=== PATIENT | male | born 1955 | race Caucasian/White ===

== ENCOUNTER 2017-08-31 08:23 | Outpatient (CLI) | payer BC ==
[2017-08-31 09:45] LABS: Hematocrit 42.3 % (42.0-52.0); Mean Platelet Volume 8.2 fL (7.4-10.4); Red Blood Cell (RBC) Count 4.76 mill/uL (4.70-6.10); White Blood Cell (WBC) Count 6.9 thou/uL (4.8-10.8)
[2017-08-31 10:00] LABS: ALT (SGPT) 25 U/L (8-55); AST (SGOT) 18 U/L (5-34); Alkaline Phosphatase 95 U/L (40-150); Anion Gap 11 mmol/L (10-20); BUN (Urea Nitrogen) 15 mg/dL (8.4-25.7); Bilirubin, Direct 0.3 mg/dL (0.1-0.3); Bilirubin, Total 0.8 mg/dL (0.2-1.2); Calc. Creatinine Clearance 0 mL/min (70-130); Calcium 10.4 mg/dL (7.8-10.44); Carbon Dioxide 25 mmol/L (22-29); Chloride 110 mmol/L (98-107); Estimated GFR-MDRD Greater than 90; Protein, Total 6.1 g/dL (6.0-8.3)
== END 2017-08-31 08:24 | disposition home or self-care (01) ==
LOC: LABBT 08:23
PROVIDERS: ATTEND Surgery
DX: Z01.812 Encounter for preprocedural laboratory examination (principal); K80.20 Calculus of gallbladder without cholecystitis without obstruction
CPT/HCPCS: 80048; 80076; 85027; 93005; 93010

== ENCOUNTER 2017-09-02 10:00 | Day surgery (SDC) | payer BC ==
[2017-08-31 08:42] VITALS: BMI 31.7
[2017-09-02] MEDS ORDERED: CEFAZOLIN/Water 2 GM/20 ML SYRINGE ONE (10:35)
[2017-09-02] MEDS ORDERED: Indocyanine Green 25 MG/10 ML VIAL ONE (10:35)
[2017-09-02] MEDS ORDERED: Bupivacaine/Epinephrine 0.25% 30 ML VIAL ONE (11:41)
[2017-09-02] MEDS ORDERED: Fentanyl 250 MCG/5 ML VIAL ONE (12:00)
[2017-09-02] MEDS ORDERED: SUGAMMADEX SODIUM 500 MG/5 ML VIAL ONE (13:31)
[2017-09-02] MEDS ORDERED: Ondansetron HCl/PF 4 MG/2 ML Vial ONE (14:47)
[2017-09-02] MEDS ORDERED: Glycopyrrolate 0.2 MG/ML 5 ML SYRINGE ONE (14:47)
[2017-09-02] MEDS ORDERED: Propofol 200 MG/20 ML VIAL ONE (14:47)
[2017-09-02] MEDS ORDERED: Calcium Chloride 1 GM/10 ML Abboject SYRINGE ONE (14:47)
[2017-09-02] MEDS ORDERED: ePHEDrine/0.9% NaCl/PF SYRINGE 50 mg/10 ml ONE (14:47)
[2017-09-02] MEDS ORDERED: Dexamethasone 20 MG/5 ML VIAL ONE (14:47)
[2017-09-02] MEDS ORDERED: PHENYLEPHRINE-NS 100 MCG/ML 10 ML SYRINGE ONE (14:47)
[2017-09-02] MEDS ORDERED: Lidocaine 1% PF 5 ML VIAL ONE (14:47)
[2017-09-02] MEDS ORDERED: HYDROcodone/Acetaminophen 5/325 mg Tablet ONE (15:00)
[2017-09-02] MEDS ORDERED: Promethazine HCl 25 MG/ML VIAL ONE (16:10)
--- NOTE | 2017-09-02 22:50 | OP ---
PREOPERATIVE DIAGNOSIS: Symptomatic gallstones. POSTOPERATIVE DIAGNOSIS: Symptomatic gallstones. PROCEDURE: Da Thomas laparoscopic cholecystectomy. SURGEON: Dr. Lamin Aceves. ANESTHESIA: General. ESTIMATED BLOOD LOSS: Minimal. COMPLICATIONS: None. SPECIMEN: Gallbladder. FINDINGS: Chronic cholecystitis. TECHNIQUE: The patient was taken to the operating room and placed supine on the table. After genera l anesthetic was obtained, the abdomen was prepped and draped in a sterile fashion. Curved incision made below the umbilicus. Cautery was used to dissect down to and score the fascia. Abdominal cavit y entered using a 12-mm Ethicon trocar, high-flow pneumoperitoneum was obtained. Left and right abdo andrew 8 mm robot trocars and a 5-mm assist port was placed. All ports were docked to the robot. The patient had been placed in reverse Trendelenburg position. The peritoneum of the gallbladder was op ened anteriorly and posteriorly. The critical view triangle was seen showing only the cystic duct an d cystic artery branching medial to lateral. There were no other branching structures. The anatomy was confirmed using fluorescence as ICG green dye had been given intravenously preop. Two clip s were placed proximally and one distally and the cystic duct was cut using laparoscopic scissors. C ystic artery was taken in the same way. Cautery was then used to dissect the gallbladder out of the gallbladder fossa. The gallbladder was placed in an Endo catch bag and at the end of the procedure w as brought out through the 12-mm trocar site. There was no bleeding in the liver bed. The right upp er quadrant was irrigated using sterile solution until returns are clear. All port sites are worse u sing local anesthetic. All ports were undocked from the robot. The patient did had an umbilical her lyudmila at the umbilicus. This was closed in a primary fashion using interrupted PDS suture. All other port sites were removed and all skin incisions closed using 4-0 Monocryl and Dermabond. The patient was en route to recovery in stable condition. All instrument counts, needle counts, and lap counts w ere correct.
== END 2017-09-02 17:30 | disposition home or self-care (01) ==
LOC: SDC 10:00
PROVIDERS: ATTEND Surgery
PROC: 0FT44ZZ Resection of Gallbladder, Percutaneous Endoscopic Approach (ICD-10-PCS; principal; 2017-09-02)
DX: K80.10 Calculus of gallbladder with chronic cholecystitis without obstruction (principal); Z95.5 Presence of coronary angioplasty implant and graft; Z98.890 Other specified postprocedural states
CPT/HCPCS: 88304; 96374; J1100; J2001; J2405; J2550; J2704; J3010

== ENCOUNTER 2018-05-13 13:35 | Inpatient (IN) | payer BC ==
[2018-05-13 14:04] LABS: #Eosinphils 0.2 thou/uL (0.0-0.7); #Lymphocytes 1.7 thou/uL (1.20-3.40); #Monocytes 0.6 thou/uL (0.11-0.59); #Neutrophils 4.4 thou/uL (1.40-6.50); %Basophils 0.4 % (0.0-1.0); %Eosinophils 2.2 % (0.0-10.0); %Lymphocytes 24.9 % (21.0-51.0); %Monocytes 8.7 % (0.0-10.0); %Neutrophils 63.8 % (42.0-75.0); Hemoglobin 15.1 g/dL (14.0-18.0); Mean Corpuscular HGB CONC 34.9 g/dL (32.0-36.0); Mean Corpuscular Hemoglobin 30.8 pg (27.0-31.0); Mean Corpuscular Volume 88.1 fL (78.0-98.0); Mean Platelet Volume 7.7 fL (7.4-10.4); Platelet Count 185 thou/uL (130-400); RBC Distribution Width 12.5 % (11.5-14.5); White Blood Cell (WBC) Count 6.9 thou/uL (4.8-10.8)
[2018-05-13 14:24] LABS: ALT (SGPT) 31 U/L (8-55); AST (SGOT) 23 U/L (5-34); Albumin 4.5 g/dL (3.5-5.0); Alkaline Phosphatase 97 U/L (40-150); Anion Gap 9 mmol/L (10-20); BUN (Urea Nitrogen) 16 mg/dL (8.4-25.7); Bilirubin, Total 1.3 mg/dL (0.2-1.2); CK (CPK) 88 U/L (30-200); Calc. Creatinine Clearance 0 mL/min (70-130); Calcium 10.9 mg/dL (7.8-10.44); Carbon Dioxide 24 mmol/L (22-29); Chloride 109 mmol/L (98-107); Estimated GFR-MDRD Greater than 90; Globulin 2.2 g/dL (2.4-3.5); Glucose 118 mg/dL (70-105); Lipase 35 U/L (8-78); Potassium 4.2 mmol/L (3.5-5.1); Protein, Total 6.7 g/dL (6.0-8.3); Sodium 138 mmol/L (136-145)
[2018-05-13 14:28] LABS: CKMB 1.5 ng/mL (0-6.6); Troponin I 0.025 ng/mL (< 0.028)
--- NOTE | 2018-05-13 14:36 | RAD ---
CHEST ONE VIEW: History: Chest pain. Comparison: None. FINDINGS: Lungs are without focal airspace consolidation, pneumothorax or effusion. Cardiac silhouette and medi astinal contours are within normal limits. No acute osseous abnormality. IMPRESSION: No acute intrathoracic abnormality. POS: [facility]
[2018-05-13] MEDS ORDERED: Acetaminophen 500 MG TAB PO PRN (18:22)
[2018-05-13] MEDS ORDERED: Docusate 100 MG CAP PO PRN (18:22)
[2018-05-13] MEDS ORDERED: Ondansetron HCl/PF 4 MG/2 ML Vial IVP PRN (18:22)
[2018-05-13] MEDS ORDERED: Bisacodyl 5 MG TAB PO PRN (18:22)
[2018-05-13] MEDS ORDERED: Nitroglycerin 0.4 MG TAB (25 Tab Bottle) SL PRN (18:22)
[2018-05-13] MEDS ORDERED: Mag-Al 1200 mg/1200 mg/30 ML UDCUP PO PRN (18:22)
[2018-05-13] MEDS ORDERED: Famotidine 20 MG TAB PO PRN (18:22)
[2018-05-13] MEDS ORDERED: Promethazine 25 MG TAB PO PRN (18:22)
[2018-05-13] MEDS ORDERED: Morphine 4 MG/ML VIAL SLOW IVP PRN (18:23)
[2018-05-13 18:47] LABS: Troponin I 0.024 ng/mL (< 0.028)
[2018-05-13 20:17] VITALS: BMI 32.9
[2018-05-13] MEDS: Enoxaparin Sodium 40 MG/0.4 ML SYRINGE SC SCH (20:37)
[2018-05-13] MEDS: NS 0.9% w/ 20 MEQ KCL 1,000 ML/1,000 ML BAG IV SCH (21:09)
--- NOTE | 2018-05-14 01:33 | HP ---
DATE OF ADMISSION: 05/13/2018 PRIMARY CARE PHYSICIAN: Dr. Xavier Kinsey. RIBBER: Dr. Hsu. CHIEF COMPLAINT: Chest pain and shortness of breath. HISTORY OF PRESENT ILLNESS: The patient states, for the last 2 weeks, he has had exertional chest pa in, shortness of breath, substernal, worse with activity, better with rest. Has no symptoms at rest. He has a prior history of cardiac stents, the last of which was in 2001. Last cardiac stress test reported a couple of years ago. Prior stress test normal in the past after his stent in 2001. A nor mal ejection fraction on last echo. Normal carotid Dopplers in 2002. MEDICATIONS: The patient states he is compliant with his outpatient medications, which include baby aspirin 81 mg, atorvastatin 40 mg, metoprolol 50 mg, niacin 1000 mg. PAST MEDICAL, SOCIAL, SURGICAL HISTORY: Includes no known drug allergies. Cardiac stent, coronary a rtery disease, hypertension, hyperlipidemia, hypertriglyceridemia. Lives with spouse. Denies curren t tobacco or alcohol use. PHYSICAL EXAMINATION: VITAL SIGNS: Temperature of 97.4, pulse of 50, respiratory rate of 16, oxygen saturation 97% on room air, blood pressure 137/77. GENERAL: The patient is alert and oriented, in no acute distress. HEENT: Head is normocephalic, atraumatic. Extraocular movements are intact. Sclerae are clear. Or al mucosa is moist. NECK: Supple. HEART: Regular rate and rhythm. No murmurs auscultated. LUNGS: Clear to auscultation bilaterally. No rubs or wheezes. ABDOMEN: Soft, nontender, positive bowel sounds throughout. EXTREMITIES: Lower extremities without cyanosis or edema to right lower extremity; left lower extrem ity with pitting edema to just above the ankle, 1+, not present on admission. NEUROLOGIC: The patient is alert and oriented x3, no focal deficits. Speech is normal. LABORATORY WORK: Includes white blood cell count of 6.9, hemoglobin 15.1, platelet count of 185. Tr oponins x3 are 0.02, 0.02, 0.02. BNP of 34. Sodium of 138, potassium of 4.2, CO2 of 24, creatinine of 0.82, glucose of 118, AST of 23, ALT of 31, albumin of 4.5. Chest x-ray without acute cardiopulmo nary events. ASSESSMENT AND PLAN: Chest pain, rule out acute myocardial infarction. The patient's history is sherin t of stable versus unstable angina. Given its more rapid progression over 2 weeks, likely that of un stable angina. Given troponins are not increasing, we will proceed with stress test in the morning. If Cardiology is available for comment, we will seek any further recommendations. Otherwise, contin uing medical management. Given the stress test tomorrow, we will hold beta flores. We will continu e aspirin, statin, p.r.n. nitroglycerin. We will consider to start ZAHIDA or ARB within 24 hours. Whil e patient is n.p.o., we will place the patient on IV fluids for maintenance purposes. Follow up EKG and labs in the morning and read of the stress test.
[2018-05-14] MEDS: NS 0.9% w/ 20 MEQ KCL 1,000 ML/1,000 ML BAG IV SCH ×2 (04:58→20:15)
[2018-05-14 05:33] LABS: Anion Gap 8 mmol/L (10-20); BUN (Urea Nitrogen) 18 mg/dL (8.4-25.7); Calc. Creatinine Clearance 154 mL/min (70-130); Calcium 9.7 mg/dL (7.8-10.44); Carbon Dioxide 22 mmol/L (22-29); Chloride 113 mmol/L (98-107); Estimated GFR-MDRD Greater than 90; Glucose 104 mg/dL (70-105); Magnesium 2.3 mg/dL (1.6-2.6); Potassium 4.2 mmol/L (3.5-5.1); Sodium 139 mmol/L (136-145)
[2018-05-14] MEDS ORDERED: ADENOSINE 60 MG/20 ML VIAL ONE (08:14)
[2018-05-14] MEDS ORDERED: Iopamidol 370 76% 100 ML VIAL ONE (08:17)
[2018-05-14] MEDS ORDERED: Iopamidol 370 76% 50 ML VIAL FS ONE (08:17)
[2018-05-14] MEDS ORDERED: Aspirin 325 mg Enteric Coated Tablet PO SCH (09:00)
[2018-05-14] MEDS: Atorvastatin Calcium 40 MG TAB PO SCH (12:08)
--- NOTE | 2018-05-14 12:17 | EKG ---
Test Reason : Blood Pressure : / mmHG Vent. Rate : 059 BPM Atrial Rate : 059 BPM P-R Int : 158 ms QRS Dur : 102 ms QT Int : 414 ms P-R-T Axes : 003 037 041 degrees QTc Int : 409 ms Sinus bradycardia Otherwise normal ECG Confirmed by DORA MAYA ([id number]) on 05/14/2018 12:17:44 PM Referred By: EYAL Confirmed By:DORA MAYA
--- NOTE | 2018-05-14 15:14 | NM ---
RADIONUCLIDE STRESS REST MYOCARDIAL PERFUSION SCAN WITH CT ATTENUATION CORRECTION AND SPECT IMAGING LEFT VENTRICULAR WALL MOTION EVALUATION AND EJECTION FRACTION: HISTORY: Chest pain. FINDINGS: Adenosine protocol. There is homogeneous uptake of radiotracer throughout the left ventricular myoca rdium. On the stress images, a large area of markedly diminished radiotracer uptake involves the ent irety of the septum and medial aspect of the anterior wall. On the rest images, the defect is smalle r. QGS analysis of gated SPECT images diminished motion and thickening of the septal wall. Left ventricular ejection fraction is calculated at 57%. IMPRESSION: 1. Probably abnormal myocardial perfusion scan showing an area of infarct at the septal wall with pe riinfarct ischemia. 2. Preserved left ventricular ejection fraction of 57%. POS: [facility]
[2018-05-14] MEDS ORDERED: Lidocaine 1% (PF) 30 ML VIAL ONE (15:46)
[2018-05-14] MEDS ORDERED: Heparin 1000 UNIT/NS 500ML(OR) 1,000 ML ONE (15:46)
[2018-05-14] MEDS ORDERED: Fentanyl 100 MCG/2 ML VIAL ONE (16:14)
[2018-05-14] MEDS ORDERED: Midazolam HCl 2 mg/2 ml Vial ONE (16:14)
[2018-05-14] MEDS ORDERED: Heparin 10,000 UNITS/1 ML VIAL ONE (16:28)
[2018-05-14] MEDS ORDERED: TICAGRELOR 90 MG TABLET ONE (16:40)
[2018-05-14] MEDS ORDERED: Nitroglycerin 100MG/250ML BOT 0 ML ONE (16:48)
[2018-05-14] MEDS ORDERED: CEFAZOLIN 1 GM VIAL ONE (16:48)
--- NOTE | 2018-05-14 17:37 | PRG ---
DATE OF SERVICE: 05/14/2018 HISTORY OF PRESENT ILLNESS: The patient underwent serial troponins, which were not significantly rian vated, however, were not undetectable. The patient remained chest pain and shortness of breath free, not requiring oxygen therapy to maintain saturations above 95% while inpatient. He is able to ambul ate to the restroom without difficulty. He has no acute complaints overnight. Nuclear medicine stre ss test was positive for ischemia. Dr. Corona was consulted and took the patient back to metallurgy laboratory technician. The patient was initiated on losartan and metoprolol along with aspirin and prophylactic Lovenox. We will hold movement to therapeutic Lovenox and Plavix. Given that the patient has come back for perc utaneous intervention, we will default any further antiplatelet or anticoagulation per Cardiology's r ecommendations. PHYSICAL EXAMINATION: VITAL SIGNS: Temperature 97.7, pulse of 57, respiratory rate of 16, oxygen saturation of 97% on room air, blood pressure 125/78. Potential infarct on nuclear medicine stress test of septal wall. Ejec tion fraction suggested at 57%. GENERAL: The patient is alert and oriented, in no acute distress. HEENT: Normocephalic, atraumatic. Extraocular movements are intact. Sclerae are clear. Oral mucos a is moist. NECK: Supple. HEART: Regular rate and rhythm at the time of exam. No murmurs auscultated. LUNGS: Clear to auscultation bilaterally. No rubs or wheezes. ABDOMEN: Soft, nontender, positive bowel sounds throughout, protuberant. EXTREMITIES: Lower extremities with trace pitting edema bilaterally. No cyanosis. NEUROLOGIC: The patient is alert and oriented x3. No focal deficits. Speech is normal. ASSESSMENT AND PLAN: Acute coronary syndrome. Cardiology has taken the patient back to catheterizat ion lab. Follow up on their recommendations. They have ordered cardiac rehabilitation postprocedure .
[2018-05-14] MEDS: Enoxaparin Sodium 40 MG/0.4 ML SYRINGE SC SCH (21:45)
[2018-05-15] MEDS ORDERED: Sodium Chloride 0.9% 500 ML IVPB SCH (01:00)
[2018-05-15] MEDS ORDERED: TICAGRELOR 90 MG TABLET PO SCH ×2 (01:00→09:00)
[2018-05-15 04:31] LABS: #Eosinphils 0.2 thou/uL (0.0-0.7); #Lymphocytes 1.5 thou/uL (1.20-3.40); #Monocytes 0.8 thou/uL (0.11-0.59); #Neutrophils 5.8 thou/uL (1.40-6.50); %Eosinophils 2.6 % (0.0-10.0); %Lymphocytes 18.1 % (21.0-51.0); %Monocytes 9.8 % (0.0-10.0); %Neutrophils 69.4 % (42.0-75.0); Hemoglobin 14.1 g/dL (14.0-18.0); Mean Corpuscular HGB CONC 35.1 g/dL (32.0-36.0); Mean Corpuscular Hemoglobin 30.9 pg (27.0-31.0); Mean Platelet Volume 8.1 fL (7.4-10.4); Platelet Count 161 thou/uL (130-400); RBC Distribution Width 12.5 % (11.5-14.5); Red Blood Cell (RBC) Count 4.55 mill/uL (4.70-6.10); White Blood Cell (WBC) Count 8.4 thou/uL (4.8-10.8)
[2018-05-15 05:06] LABS: ALT (SGPT) 28 U/L (8-55); AST (SGOT) 23 U/L (5-34); Albumin 3.8 g/dL (3.5-5.0); Alkaline Phosphatase 82 U/L (40-150); Anion Gap 13 mmol/L (10-20); BUN (Urea Nitrogen) 13 mg/dL (8.4-25.7); Bilirubin, Total 1.2 mg/dL (0.2-1.2); Calc. Creatinine Clearance 160 mL/min (70-130); Calcium 9.9 mg/dL (7.8-10.44); Carbon Dioxide 18 mmol/L (22-29); Chloride 112 mmol/L (98-107); Estimated GFR-MDRD Greater than 90; Glucose 94 mg/dL (70-105); Potassium 4.1 mmol/L (3.5-5.1); Protein, Total 5.8 g/dL (6.0-8.3); Sodium 139 mmol/L (136-145)
[2018-05-15] MEDS ORDERED: Losartan 25 MG TAB PO SCH (09:00)
[2018-05-15] MEDS ORDERED: Aspirin 81 mg Enteric Coated Tablet PO SCH (09:00)
[2018-05-15] MEDS: Atorvastatin Calcium 40 MG TAB PO SCH (09:07)
--- NOTE | 2018-05-15 10:40 | PRG ---
DATE OF SERVICE: 05/15/2018 SUBJECTIVE: The patient remains chest pain free. No complaints of nausea, vomiting. He is postop d ay #1 status post cardiac catheterization by Dr. Corona. OBJECTIVE: VITAL SIGNS: Temperature 98.1, pulse 60, respirations 18, pulse ox 98, blood pressure 129/75. HEART: Regular rate and rhythm without murmur. LUNGS: Clear. ABDOMEN: Soft. EXTREMITIES: Right groin intact. Minimal swelling, minimal ecchymosis. No peripheral edema. LABORATORY: H and H 14.1 and 40.1 this morning. Electrolytes normal. Creatinine 0.69, BUN 13, gluc ose 94. ASSESSMENT: 1. Postop day #1, status post cardiac catheterization. 2. Multivessel coronary artery disease. The patient is status post stenting of the LAD of a 99% les ion and a 50% lesion distally. He also has disease of the circumflex, a 40% lesion in the RCA of 30% . 3. Hyperlipidemia. 4. Hypertension. PLAN: 1. Routine postop orders. 2. May need to be more aggressive with statin therapy. 3. Discuss diet and exercise with the patient. 4. Possible discharge today. 5. Patient has been started on Brilinta 90 b.i.d.
[2018-05-15 11:59] VITALS: BP 145/75; TEMP 98.6
--- NOTE | 2018-05-15 14:34 | CON ---
DATE OF CONSULTATION: 05/14/2018 REASON FOR CONSULTATION: Chest pain. PRIMARY SPECIALTY TRIMMER: Dr. Ayush Hsu. HISTORY OF PRESENT ILLNESS: Mr. Noonan is a pleasant 62-year-old white gentleman who comes to the [facility] for chest pain. He has noted dyspnea on exertion and chest tightness for the last 2 weeks, has been progressively getting worse and worse. He decided to come in as he convinced that he had blocke d arteries, he has had a LAD lesion in the past in 2001. He had a stent after brachytherapy, had in- stent restenosis a year later, had to receive another stent at that time. Has not had any problem si nce he had a negative stress back into 2016. He had a nuclear stress earlier today had anterior late ral ischemia with small amount of scar. Currently, he is chest pain free. PAST MEDICAL HISTORY: 1. Coronary artery disease. 2. Hypertension. 3. Hyperlipidemia. SOCIAL HISTORY: No alcohol, tobacco or drugs. PAST SURGICAL HISTORY: Stenting in 2001 and again in 2002. REVIEW OF SYSTEMS: A 12-point review of systems was done, negative except as noted in history of pre sent illness. OUTPATIENT MEDICATIONS: 1. Aspirin 81 a day. 2. Niacin. 3. Atorvastatin 20 mg q.a.m. 4. Metoprolol succinate 50 mg a day. ALLERGIES: No known drug allergies. PHYSICAL EXAMINATION: VITAL SIGNS: Temperature 98.4, pulse , satting 98% on room air, blood pressure 115/77 GENERAL: Awake, alert, oriented in 3, no distress. HEENT: Normocephalic, atraumatic. NECK: Supple. LUNGS: Clear. CARDIOVASCULAR: S1, S2. No S3, S4, no murmurs. ABDOMEN: Soft with bowel sounds . EXTREMITIES: No edema. SKIN: Warm and dry. LABORATORY DATA: Reviewed. CBC unremarkable. Chemistries unremarkable except for chloride of 113. His glucose was 118 on admission and a calcium 10.9, but better at 9.7, troponin was 0.02, 0.02, 0.0 2 with a BNP of 34, albumin of 4.5. Nuclear stress test results were reviewed, normal EF of 57% with a small area of scar with a large ar ea of tal-infarct ischemia on the anterior septal wall. ASSESSMENT AND PLAN: 1. Chronic stable angina 2. Abnormal with atrial anterior septal ischemia. 3. Hypertension. PLAN: We will plan further risk stratification with heart catheterization. We spoke about risks and benefits of the procedures including but not limited to stroke, DE, , bleeding, need for blood transfusion, limb loss, loss. He understands, verbalizes understanding of this and agrees to juan manuel mackey. We will do drug-eluting stents if needed. Further recommendations pending results of coronary angiogram.
--- NOTE | 2018-05-15 18:28 | PDOC.CTH ---
Cardiology Progress Note - Subjective He is doing great. No chest pain. No SOB with exertion. - Objective Vital Signs Temp Pulse Pulse Pulse Resp BP BP 05/15/18 11:38 98.6 F 63 18 05/15/18 09:00 98.1 F 60 18 05/15/18 08:42 58 L 58 L 169/81 H 175/79 H 05/15/18 07:48 98.1 F 60 18 BP Pulse Ox Pulse Ox Pulse Ox 05/15/18 11:38 145/75 H 97 05/15/18 09:00 98 05/15/18 08:42 96 99 05/15/18 07:48 129/75 98 Weight 219 lb 11.2 oz 05/14/18 05/15/18 05/16/18 06:59 06:59 06:59 Intake Total 1189 742 Balance 1189 742 - Physical Examination General/Neuro: alert & oriented x3, NAD Neck: no JVD present Lungs: CTA, unlabored respirations Heart: RRR Abdomen: NT/ND Extremities: other: (no edema.) - Telemetry Telemetry Rhythm: NSR - Labs Result Diagrams: 05/15/18 03:39 05/15/18 03:39 Troponin/CKMB CK-MB (CK-2) 1.5 ng/mL (0-6.6) 05/13/18 13:54 Troponin I 0.020 ng/mL (< 0.028) 05/13/18 20:43 - Assessment/Plan 1. CAD. 2. Chronic stable angina 3. Abnormal MPI 4. S/P PCI to LAD PLAN: - Brilinta/Aspirin 81, BB and ACEI. - Follow up in 1 month. - May discharge home.
--- NOTE | 2018-05-17 10:49 | EKG ---
Test Reason : Blood Pressure : / mmHG Vent. Rate : 056 BPM Atrial Rate : 056 BPM P-R Int : 162 ms QRS Dur : 092 ms QT Int : 426 ms P-R-T Axes : 036 066 059 degrees QTc Int : 411 ms Sinus bradycardia Otherwise normal ECG When compared with ECG of 14-MAY-2018 07:32, No significant change was found Confirmed by DR. Charlette RODRIGUEZ ([id number]), social media editor VALERIY LOONEY ([id number]) on 05/17/2018 10:49:11 AM Referred By: TRINA Confirmed By:DR. Charlette RODRIGUEZ
--- NOTE | 2018-05-18 13:42 | EKG ---
Test Reason : Blood Pressure : / mmHG Vent. Rate : 056 BPM Atrial Rate : 056 BPM P-R Int : 168 ms QRS Dur : 090 ms QT Int : 420 ms P-R-T Axes : -02 049 032 degrees QTc Int : 405 ms Sinus bradycardia Otherwise normal ECG No previous ECGs available Confirmed by DORA MAYA ([id number]) on 05/18/2018 1:42:02 PM Referred By: TRINA Confirmed By:DORA MAYA
== END 2018-05-15 13:10 | disposition home or self-care (01) | DRG 247 ==
LOC: ERS 13:35 → 2SW 16:00 → OBSVTOIN 05-14 17:20
PROVIDERS: ADMIT Family Medicine; ATTEND Family Medicine
PROC: 027036Z Dilation of Coronary Artery, One Artery with Three Drug-eluting Intraluminal Devices, Percutaneous Approach (ICD-10-PCS; principal; 2018-05-14)
PROC: 4A023N7 Measurement of Cardiac Sampling and Pressure, Left Heart, Percutaneous Approach (ICD-10-PCS; 2018-05-14)
PROC: B2151ZZ Fluoroscopy of Left Heart using Low Osmolar Contrast (ICD-10-PCS; 2018-05-14)
PROC: B2111ZZ Fluoroscopy of Multiple Coronary Arteries using Low Osmolar Contrast (ICD-10-PCS; 2018-05-14)
DX: I25.118 Atherosclerotic heart disease of native coronary artery with other forms of angina pectoris (principal); E78.5 Hyperlipidemia, unspecified; I10 Essential (primary) hypertension; Z79.899 Other long term (current) drug therapy; Z79.82 Long term (current) use of aspirin; Z98.61 Coronary angioplasty status
CPT/HCPCS: 36415; 36416; 71045; 78452; 80048; 80053; 82550; 82553; 83690; 83735; 83880; 84484; 85025; 90471; 90732; 92928; 93005; 93010; 93017; 93458; 93798; 99152; 99153; A9500; C1760; C1769; C1874; C9600; G0009; J0153; J0690; J1644; J1650; J2001; J2250; J3010

== ENCOUNTER 2024-07-15 08:14 | Outpatient (CLI) | payer BC | END 2024-07-15 08:15 | disposition home or self-care (01) | LOC: BICMAMMO 08:14 | PROVIDERS: ATTEND Internal Medicine Endocrinology, Diabetes & Metabolism | DX: M85.89 Other specified disorders of bone density and structure, multiple sites (principal); R73.9 Hyperglycemia, unspecified | CPT/HCPCS: 77080 ==

== ENCOUNTER 2024-08-15 09:30 | Inpatient (IN) | payer BC, MEDICARE ==
[2024-08-15 15:24] VITALS: BMI 31.0
[2024-08-15 16:44] LABS: #Basophils 0.04 10x3/uL (0.0-0.2); %Basophils 0.5 % (0.0-1.0); %Lymphocytes 18.9 % (21.0-51.0); %Monocytes 9.5 % (0.0-10.0); %Neutrophils 67.7 % (42.0-75.0); Hematocrit 42.5 % (42.0-52.0); Hemoglobin 14.3 g/dL (14.0-18.0); Mean Corpuscular HGB CONC 33.6 g/dL (32.0-36.0); Mean Corpuscular Volume 86.2 fL (78.0-98.0); Platelet Count 213 10x3/uL (130-400); RBC Distribution Width 13.3 % (11.5-14.5); Red Blood Cell (RBC) Count 4.93 mill/uL (4.70-6.10)
[2024-08-15 16:57] LABS: Anion Gap 10 mmol/L (10-20); BUN (Urea Nitrogen) 19 mg/dL (8.4-25.7); Calc. Creatinine Clearance 0 mL/min (70-130); Calcium 10.9 mg/dL (7.8-10.44); Carbon Dioxide 26 mmol/L (23-31); Chloride 108 mmol/L (98-107); Estimated GFR 91; Glucose 115 mg/dL (80-115); Potassium 4.1 mmol/L (3.5-5.1); Sodium 140 mmol/L (136-145)
[2024-08-16] MEDS ORDERED: Lidocaine 1% MPF 2 ML VIAL ONE (05:41)
[2024-08-16] MEDS ORDERED: Albumin 5% 500 ML ONE (06:29)
[2024-08-16] MEDS ORDERED: PHENYLEPHRINE-NS 100 MCG/ML 10 ML SYRINGE ONE ×2 (06:29→06:55)
[2024-08-16] MEDS ORDERED: EPINEPHrine 1 MG/ML VIAL ONE (06:29)
[2024-08-16] MEDS ORDERED: Bupivacaine PF 0.5% 30 ML VIAL ONE (06:29)
[2024-08-16] MEDS ORDERED: Dexamethasone 4 mg/ml Vial ONE (06:29)
[2024-08-16] MEDS ORDERED: Heparin 10,000 UNITS/1 ML VIAL 30,000 UNITS in Sodium Chloride 0.9% 1,000 ML FS SCH (06:45)
[2024-08-16] MEDS ORDERED: PROPOFOL 20 ML ONE (06:51)
[2024-08-16] MEDS ORDERED: Midazolam HCl 2 mg/2 ml Vial ONE (06:51)
[2024-08-16] MEDS ORDERED: ePHEDrine Sulfate 50 MG/10 ML VIAL ONE (06:51)
[2024-08-16] MEDS ORDERED: fentaNYL PF 100 MCG/2 ML SYRINGE ONE ×2 (06:51→08:30)
[2024-08-16] MEDS ORDERED: Lidocaine 2% PF 5 ML VIAL ONE (06:55)
[2024-08-16] MEDS ORDERED: Rocuronium Bromide 10 MG/ML (10ML VIAL) ONE ×2 (06:55→08:25)
[2024-08-16] MEDS ORDERED: Lidocaine 2% PF 100 mg/5 ml Syringe ONE ×2 (06:55→07:39)
[2024-08-16] MEDS ORDERED: CEFAZOLIN 1 GM VIAL ONE (06:55)
[2024-08-16] MEDS ORDERED: Norepinephrine 4 MG/4 ML VIAL ONE (06:56)
[2024-08-16] MEDS ORDERED: Aminocaproic Acid 5 GM/20 ML VIAL ONE ×2 (06:56→07:39)
[2024-08-16] MEDS ORDERED: Thrombin 5000 UNITS/5 ML VIAL ONE (07:39)
[2024-08-16] MEDS ORDERED: Cardioplegic Soln 1,000 ML BAG ONE (07:39)
[2024-08-16] MEDS ORDERED: Protamine Sulfate 250 MG/25 ML VIAL ONE (07:39)
[2024-08-16] MEDS ORDERED: Heparin 5,000 UNITS/ML VIAL ONE (07:39)
[2024-08-16] MEDS ORDERED: Mannitol 12.5 GM/50 ML ONE (07:39)
[2024-08-16] MEDS ORDERED: Sodium Bicarb 50 mEq/50 ML VIAL ONE (07:39)
[2024-08-16] MEDS ORDERED: Magnesium 5 GM/10 ML VIAL ONE (07:39)
[2024-08-16] MEDS ORDERED: Papaverine 60 MG/2 ML VIAL ONE (07:39)
[2024-08-16] MEDS ORDERED: Heparin 30,000 units/30 ml VIAL ONE (07:39)
[2024-08-16] MEDS ORDERED: Calcium Chloride 1 GM/10 ML Abboject SYRINGE ONE (07:39)
[2024-08-16] MEDS ORDERED: Vancomycin 1 GM VIAL ONE (07:39)
[2024-08-16] MEDS ORDERED: Potassium Chloride 60 mEq (30 mL) VIAL ONE (07:39)
[2024-08-16] MEDS ORDERED: Esmolol 100 MG/10 ML VIAL ONE (07:43)
[2024-08-16] MEDS ORDERED: Heparin 10,000 UNITS/ 10 ML VIAL ONE (08:03)
[2024-08-16] MEDS ORDERED: Protamine Sulfate 50 MG/5 ML VIAL ONE (09:48)
[2024-08-16] MEDS ORDERED: traMADol HCl 50 MG TAB PO PRN (10:29)
[2024-08-16] MEDS ORDERED: Potassium Chloride 20 MEQ (100 mL) BAG IVPB PRN (10:29)
[2024-08-16] MEDS ORDERED: hydrALAZINE 20 MG/ML VIAL SLOW IVP PRN (10:29)
[2024-08-16] MEDS ORDERED: Guaifenesin DM 100-10/5 ML UDCUP PO PRN (10:29)
[2024-08-16] MEDS ORDERED: NOREPINEPHRINE 8 MG/250 ML-D5W 250 ML IVPB PRN (10:29)
[2024-08-16] MEDS ORDERED: Ipratropium/Albuterol 3 ML NEB NEB PRN (10:29)
[2024-08-16] MEDS ORDERED: Mag-Al 1200 mg/1200 mg/30 ML UDCUP PO PRN (10:29)
[2024-08-16] MEDS ORDERED: Bisacodyl 10 MG SUPP PR PRN (10:29)
[2024-08-16] MEDS ORDERED: Dextrose 50% Abboject 50 ML SYRINGE SLOW IVP PRN (10:45)
[2024-08-16] MEDS ORDERED: Glucagon 1 MG/ML KIT SC PRN (10:45)
[2024-08-16] MEDS ORDERED: Dextrose 5% in Water 1,000 ML IV PRN (10:45)
[2024-08-16] MEDS: Magnesium 2 GM/50 ML(in water) 2 GM in Premix 1 BAG IVPB SCH (11:02)
[2024-08-16] MEDS: Insulin Regular, Human 100 UNIT/ML 10 ML VIAL SC PRN (11:02)
[2024-08-16] MEDS: fentaNYL 50 mcg/mL 1 mL Vial SLOW IVP PRN ×2 (11:04→21:46)
[2024-08-16 11:06] LABS: #Basophils 0.04 10x3/uL (0.0-0.2); %Basophils 0.3 % (0.0-1.0); %Eosinophils 1.1 % (0.0-10.0); %Lymphocytes 11.2 % (21.0-51.0); %Monocytes 4.2 % (0.0-10.0); %Neutrophils 82.3 % (42.0-75.0); Hematocrit 35.1 % (42.0-52.0); Hemoglobin 11.9 g/dL (14.0-18.0); Mean Corpuscular HGB CONC 33.9 g/dL (32.0-36.0); Mean Corpuscular Hemoglobin 29.2 pg (27.0-31.0); Mean Platelet Volume 10.3 fL (7.4-10.4); Platelet Count 145 10x3/uL (130-400); RBC Distribution Width 13.2 % (11.5-14.5); Red Blood Cell (RBC) Count 4.08 mill/uL (4.70-6.10)
[2024-08-16] MEDS: D5 1/2 NS w/20 mEq KCL 1,000 ML IV SCH (11:06)
[2024-08-16 11:10] LABS: Base Excess (BEa) -5.6 mEq/L (-2.0 to +3.0); CO2 Tension 39.7 mmHg (35.0-45.0); Calcium, Ionized (arterial) 1.24 mmol/L (1.12-1.30); Carboxyhemoglobin (COHb) 0.2 gm% (0.0-3.0); Hematocrit-ABG 36 % (42.0-52.0); Hemoglobin (Hb) 12.4 g/dL (14.0-18.0); O2 Tension (PaO2), arterial 100.2 mmHg (> 80.0); Potassium - ABG Lab 4.14 mmol/L (3.70-5.30); pH, Arterial 7.321 (7.35-7.45)
[2024-08-16 11:11] LABS: ALV-art Gradient 277.975 mmHg (0-20); Puncture Site ALINE
[2024-08-16] MEDS: Ergocalciferol 1.25 MG(50,000 UNITS) CAP PO SCH (11:12)
[2024-08-16 11:19] LABS: INR-International Normal Ratio 1.2; Prothrombin Time 15.5 sec (12.0-14.7)
[2024-08-16 11:20] LABS: Hemoglobin A1c 5.4 % (4.0-6.0); PTT 34.1 sec (22.9-36.1)
[2024-08-16] MEDS: Ketorolac Tromethamine 30 MG (1 mL) VIAL IVP SCH (11:23)
[2024-08-16 11:24] LABS: Cardiac Risk 4.2 (Less than 4.5)
[2024-08-16 11:27] LABS: Anion Gap 9 mmol/L (10-20); BUN (Urea Nitrogen) 16 mg/dL (8.4-25.7); Calc. Creatinine Clearance 127 mL/min (70-130); Calcium 8.5 mg/dL (7.8-10.44); Carbon Dioxide 21 mmol/L (23-31); Chloride 113 mmol/L (98-107); Estimated GFR 98; Glucose 153 mg/dL (80-115); Potassium 4.3 mmol/L (3.5-5.1); Sodium 139 mmol/L (136-145)
[2024-08-16] MEDS: Morphine 2 MG/ML VIAL SLOW IVP PRN (11:28)
[2024-08-16] MEDS: Nitroglycerin 50 MG/250 ML BOT 250 ML IVPB PRN (11:31)
[2024-08-16] MEDS: Albumin 5% 12.5 GM (250 mL) BOT IVPB PRN (13:06)
[2024-08-16] MEDS: Ondansetron PF 4 MG/2 ML Vial IVP PRN (13:12)
[2024-08-16 14:51] LABS: Actual Bicarbonate (HCO3a) 17.3 mEq/L (22-28); Base Excess (BEa) -6.3 mEq/L (-2.0 to +3.0); CO2 Tension 28.8 mmHg (35.0-45.0); Calcium, Ionized (arterial) 1.18 mmol/L (1.12-1.30); Carboxyhemoglobin (COHb) 0.2 gm% (0.0-3.0); Hematocrit-ABG 36 % (42.0-52.0); Hemoglobin (Hb) 12.3 g/dL (14.0-18.0); O2 Tension (PaO2), arterial 124.7 mmHg (> 80.0); Potassium - ABG Lab 3.89 mmol/L (3.70-5.30); pH, Arterial 7.396 (7.35-7.45)
[2024-08-16 14:55] LABS: Puncture Site ALINE
[2024-08-16] MEDS: CEFAZOLIN 2 GM in Sodium Chloride 0.9% 100 ML IVPB SCH (15:14)
[2024-08-16] MEDS: Gabapentin 100 MG CAP PO SCH (16:06)
[2024-08-16 17:03] LABS: Hemoglobin 11.7 g/dL (14.0-18.0)
[2024-08-16 17:16] LABS: Potassium 4.1 mmol/L (3.5-5.1)
[2024-08-16] MEDS: traMADol HCl 50 MG TAB PO PRN (19:30)
[2024-08-16] MEDS: Famotidine/PF 20 mg/2ml Vial SLOW IVP SCH (20:20)
[2024-08-17 04:48] LABS: #Basophils Less than 0.03 10x3/uL (0.0-0.2); #Eosinophils Less than 0.03 10x3/uL (0.0-0.7); %Basophils 0.1 % (0.0-1.0); %Lymphocytes 3.5 % (21.0-51.0); %Monocytes 10.6 % (0.0-10.0); %Neutrophils 85.1 % (42.0-75.0); Hematocrit 32.7 % (42.0-52.0); Hemoglobin 10.9 g/dL (14.0-18.0); Mean Corpuscular HGB CONC 33.3 g/dL (32.0-36.0); Mean Corpuscular Hemoglobin 29.1 pg (27.0-31.0); Mean Corpuscular Volume 87.4 fL (78.0-98.0); Mean Platelet Volume 10.7 fL (7.4-10.4); Platelet Count 161 10x3/uL (130-400); RBC Distribution Width 13.4 % (11.5-14.5); Red Blood Cell (RBC) Count 3.74 mill/uL (4.70-6.10)
[2024-08-17 05:21] LABS: Anion Gap 11 mmol/L (10-20); BUN (Urea Nitrogen) 16 mg/dL (8.4-25.7); Calc. Creatinine Clearance 142 mL/min (70-130); Calcium 8.6 mg/dL (7.8-10.44); Carbon Dioxide 21 mmol/L (23-31); Chloride 113 mmol/L (98-107); Estimated GFR 101; Glucose 162 mg/dL (80-115); Potassium 4.1 mmol/L (3.5-5.1); Sodium 141 mmol/L (136-145)
[2024-08-17] MEDS: Albumin 5% 12.5 GM (250 mL) BOT IVPB PRN (06:30)
[2024-08-17] MEDS: Acetaminophen 325 MG TAB PO PRN (06:41)
[2024-08-17] MEDS: Enoxaparin 40 MG (0.4 mL) SYRINGE SC SCH (09:01)
[2024-08-17] MEDS: Atorvastatin Calcium 40 MG TAB PO SCH (09:02)
[2024-08-17] MEDS: Magnesium 2 GM/50 ML(in water) 2 GM in Premix 1 BAG IVPB SCH (09:03)
[2024-08-17] MEDS ORDERED: Bisacodyl 10 MG SUPP PR PRN (11:07)
[2024-08-17] MEDS ORDERED: Guaifenesin DM 100-10/5 ML UDCUP PO PRN (11:07)
[2024-08-17] MEDS ORDERED: traMADol HCl 50 MG TAB PO PRN ×2 (11:07)
[2024-08-17] MEDS ORDERED: Mag-Al 1200 mg/1200 mg/30 ML UDCUP PO PRN (11:07)
[2024-08-17] MEDS ORDERED: Bisacodyl 5 MG TAB PO PRN (11:07)
[2024-08-17] MEDS ORDERED: Nitroglycerin 0.4 MG TAB (25 Tab Bottle) SL PRN (11:07)
[2024-08-17] MEDS ORDERED: Milk Of Magnesia 30 ML UDCUP PO PRN (11:07)
[2024-08-17] MEDS ORDERED: diphenhydrAMINE 25 MG CAP PO PRN (11:07)
[2024-08-17] MEDS ORDERED: Mineral Oil ENEMA PR PRN (11:07)
[2024-08-17] MEDS ORDERED: Artificial Tear Ophth Sol 15 ML BOT EA EYE PRN (11:07)
[2024-08-17] MEDS: Pantoprazole DR 40 MG TAB PO SCH (13:31)
[2024-08-17] MEDS: Aspirin 81 mg Enteric Coated Tablet PO SCH (20:13)
[2024-08-18] MEDS: Pantoprazole DR 40 MG TAB PO SCH (08:46)
[2024-08-19 08:19] VITALS: BP 102/68; TEMP 97.5
[2024-08-19] MEDS: Lisinopril 2.5 MG TAB PO SCH (08:44)
[2024-08-19] MEDS: Sulfameth/Trimethoprim DS 800-160mg TAB PO SCH (08:45)
[2024-08-19] MEDS: Bisacodyl 5 MG TAB PO PRN (09:40)
== END 2024-08-19 12:04 | disposition home or self-care (01) | DRG 236 ==
LOC: SURG A 08-16 05:40 → EDSTATUS 08-16 09:30 → CCU 08-16 10:34 → PCU 08-17 10:58
PROVIDERS: ADMIT Thoracic Surgery (Cardiothoracic Vascular Surgery); ATTEND Thoracic Surgery (Cardiothoracic Vascular Surgery)
PROC: 021109W Bypass Coronary Artery, Two Arteries from Aorta with Autologous Venous Tissue, Open Approach (ICD-10-PCS; principal; 2024-08-16)
PROC: 06BQ4ZZ Excision of Left Saphenous Vein, Percutaneous Endoscopic Approach (ICD-10-PCS; 2024-08-16)
PROC: 5A1221Z Performance of Cardiac Output, Continuous (ICD-10-PCS; 2024-08-16)
PROC: 02L70CK Occlusion of Left Atrial Appendage with Extraluminal Device, Open Approach (ICD-10-PCS; 2024-08-16)
PROC: 02100Z9 Bypass Coronary Artery, One Artery from Left Internal Mammary, Open Approach (ICD-10-PCS; 2024-08-16)
PROC: 3E033XZ Introduction of Vasopressor into Peripheral Vein, Percutaneous Approach (ICD-10-PCS; 2024-08-16)
PROC: 30233J0 Transfusion of Autologous Serum Albumin into Peripheral Vein, Percutaneous Approach (ICD-10-PCS; 2024-08-16)
DX: I25.10 Atherosclerotic heart disease of native coronary artery without angina pectoris (principal); I10 Essential (primary) hypertension; E78.5 Hyperlipidemia, unspecified; E83.52 Hypercalcemia; Z79.82 Long term (current) use of aspirin; Z79.899 Other long term (current) drug therapy; Z79.01 Long term (current) use of anticoagulants; Z95.1 Presence of aortocoronary bypass graft
CPT/HCPCS: 36415; 36416; 36430; 71045; 80048; 80061; 82805; 83036; 85025; 85610; 85730; 86850; 86900; 86901; 93005; 93010; 93798; 94002; 94150; A4311; A4648; C1751; C1889; J0171; J0665; J0690; J1100; J1642; J1644; J1650; J1815; J1885; J2003; J2150; J2250; J2272; J2405; J2440; J2704; J2720; J3010; J3370; J3475; J3480; J3490; P9045; S0017

== ENCOUNTER 2024-08-15 15:08 | Outpatient (CLI) | payer BC | END 2024-08-15 15:09 | disposition home or self-care (01) | LOC: LABBT 15:08 | PROVIDERS: ATTEND Thoracic Surgery (Cardiothoracic Vascular Surgery) | DX: Z01.818 Encounter for other preprocedural examination (principal); I25.10 Atherosclerotic heart disease of native coronary artery without angina pectoris | CPT/HCPCS: 71046; 93005; 93010 ==